=== PATIENT | male | born 1945 ===

== ENCOUNTER 2016-11-15 06:12 | Day surgery (SDC) | payer BC ==
[~2016-11-15] VITALS: Ht 182.9 cm; Wt 83.4 kg
[~2016-11-15 06:12] MED LIST: ZOCOR5 MG PO; ZOLOFT 25MG25 MG PO
[2016-11-15 06:43] VITALS: BP 112/73; PULSE 57; TEMP 97.9
[2016-11-15] MEDS ORDERED: ASPIRIN 81M81 MG/TA2 PO (06:43)
[2016-11-15 07:55] VITALS: BP 90/69; PULSE 54; TEMP 97.6
[2016-11-15 08:10] VITALS: BP 98/62; PULSE 46
[2016-11-15 08:25] VITALS: BP 103/69; PULSE 48
[2016-11-15 10:27] VITALS: BP 93/58; PULSE 50
== END 2016-11-15 08:43 | disposition home or self-care (01) ==
LOC: SDCO 06:12
DX: Z12.11 Encounter for screening for malignant neoplasm of colon (principal); Z86.010 Personal history of colon polyps; K63.5 Polyp of colon; K57.30 Diverticulosis of large intestine without perforation or abscess without bleeding; K21.9 Gastro-esophageal reflux disease without esophagitis; G93.0 Cerebral cysts
CPT/HCPCS: J2250; J3010; J7030

== ENCOUNTER 2021-11-16 07:23 | Day surgery (SDC) | payer MEDICARE, BC ==
[~2021-11-16] VITALS: Ht 182.9 cm; Wt 89.4 kg
[~2021-11-16 07:23] MED LIST changes: +ASPIRIN 81M81 MG/TA2 PO
[2021-11-16 07:47] VITALS: BP 134/75; PULSE 64; TEMP 97.6
[2021-11-16] MEDS ORDERED: TUMS ULTRA ST1000 MG PO (07:53)
[2021-11-16] MEDS ORDERED: FISH OIL 500 M1 EAC1 PO (07:54)
[2021-11-16] MEDS ORDERED: MAGNESIUM ELEME30 MG PO (07:55)
[2021-11-16 09:00] VITALS: BP 105/61; PULSE 56; TEMP 97
--- NOTE | 2021-11-16 09:00 | NUR ---
The patient arrived back to [facility] from the endoscopy suite. The patient ambulated from the cart the recliner in his room with the stand by assistance of two nurses and appeared to tolerate the activity well. Vital signs were started at this time. The patient agrees to try a muffin and juice. Call light is within reach. Warm blanket provided. Denies any further needs.
[2021-11-16 09:15] VITALS: BP 106/70; PULSE 64
--- NOTE | 2021-11-16 09:15 | NUR ---
The patient appears to be tolerating the food and drink well. Vital signs appear stable. Will continue to monitor the patient.
[2021-11-16 09:25] VITALS: BP 112/82; PULSE 66
--- NOTE | 2021-11-16 09:25 | NUR ---
Dr. Correa is at the patient's bedside discussing the results of the procedure. IV to his right hand was removed and a pressure dressing was applied to the site. Discharge instructions were reviewed with the patient and he verbalized understanding. He is going to get dressed while the nurse calls his friend for a ride.
--- NOTE | 2021-11-16 09:32 | NUR ---
The patient was escorted out via wheelchair to a private vehicle. The patient's belongings and discharge paperwork were sent with him. The patient's friend, Arabella, is present to drive him home.
== END 2021-11-16 09:32 | disposition home or self-care (01) ==
LOC: SDCO 07:23
DX: Z12.11 Encounter for screening for malignant neoplasm of colon (principal); Z86.010 Personal history of colon polyps; K57.30 Diverticulosis of large intestine without perforation or abscess without bleeding; K21.9 Gastro-esophageal reflux disease without esophagitis; Z79.82 Long term (current) use of aspirin
CPT/HCPCS: J2704; J7120